=== PATIENT | female | born 1975 | race Caucasian/White ===

== ENCOUNTER 2017-05-11 14:35 | Emergency (ER) | payer BC ==
[2017-05-11 15:10] VITALS: BP 140/87
--- NOTE | 2017-05-11 15:23 | UC ---
Lower Extremity/Ankle HPI - HPI Summary HPI Summary: About a week ago got angry and kicked hard object with R foot. Has had pain and swelling on top and bottom of distal R foot, not including toes. Still painful to walk with pain coming up ankle and leg. - History of Current Complaint Stated Complaint: FOOT INJURY Time Seen by Provider: 05/11/17 15:02 Hx Obtained From: Patient Hx Last Menstrual Period: does not get ?: No Onset/Duration: Sudden Onset Severity Initially: Moderate Severity Currently: Mild Aggravating Factor(s): Standing, Ambulation Alleviating Factor(s): Rest Able to Bear Weight: Yes - Allergies/Home Medications Allergies/Adverse Reactions: Allergies Allergy/AdvReac Type Severity Reaction Status Date / Time Erythromycin AdvReac Mild Nausea Verified 10/19/16 12:08 PMH/Surg Hx/FS Hx/Imm Hx Previously Healthy: Yes - Surgical History Surgical History: Yes Surgery Procedure, Year, and Place: partial thyroidectomy - Family History Known Family History: Negative: Blood Disorder - Social History Occupation: Employed Full-time Lives: With Family Alcohol Use: Occasionally Substance Use Type: None Smoking Status (MU): Light Every Day Tobacco Smoker Amount Used/How Often: 2 packs/week Have You Smoked in the Last Year: No - Immunization History Hx Tetanus, Diphtheria Vaccination: Yes Vaccination Up to Date: Yes Review of Systems Constitutional: Negative Skin: Negative Eyes: Negative ENT: Negative Respiratory: Negative Cardiovascular: Negative Gastrointestinal: Negative Genitourinary: Negative Motor: Negative Neurovascular: Negative Musculoskeletal: Arthralgia Neurological: Negative Psychological: Negative All Other Systems Reviewed And Are Negative: Yes Physical Exam Triage Information Reviewed: Yes Appearance: Well-Appearing, No Pain Distress, Well-Nourished Vital Signs: Initial Vital Signs Temp 97.9 F 05/11/17 15:06 Pulse 107 05/11/17 15:06 Resp 20 05/11/17 15:06 BP 140/87 05/11/17 15:06 Pulse Ox 99 05/11/17 15:06 Vital Signs Reviewed: Yes Eye Exam: Normal Eyes: Positive: Conjunctiva Clear ENT Exam: Normal ENT: Positive: Normal ENT inspection, Hearing grossly normal, Pharynx normal, TMs normal Dental Exam: Normal Neck exam: Normal Neck: Positive: Supple, Nontender, No Lymphadenopathy Respiratory Exam: Normal Respiratory: Positive: Chest non-tender, Lungs clear, Normal breath sounds, No respiratory distress, No accessory muscle use Cardiovascular Exam: Normal Cardiovascular: Positive: RRR, No Murmur Musculoskeletal Exam: Other - R foot caster near distal 3rd-5th MTs Musculoskeletal: Positive: Strength Intact, ROM Intact Neurological Exam: Normal Neurological: Positive: Alert Psychological Exam: Normal Skin Exam: Normal Lower Extremity Course/Dx - Differential Dx/Diagnosis Provider Diagnoses: R foot sprain. R foot contusion. elevated blood pressure due to discomfort Discharge - Discharge Plan Condition: Stable Disposition: HOME Patient Education Materials: Foot Sprain (ED), Foot Contusion (ED) Referrals: Kirill Walters MD [Primary Care Provider] - Additional Instructions: Rest when pain is worse, and try taking ibuprofen 400-600mg 3 times per day (or naproxen 2 pills twice per day). Please see your primary care provider if you have prolonged or new symptoms.
--- NOTE | 2017-05-11 15:40 | RAD ---
Indication: Fourth and fifth metatarsal pain proximally following kicking injury one week ago. Comparison: No relevant prior exams available on the [facility] [place] PACS for comparison. Technique: AP, lateral, and oblique views RIGHT foot. Report: Normal articular alignment. No cortical disruption or suspicious trabecular irregularity to suggest fracture. No periosteal reaction or other stigmata of stress reaction. Minimal osteophytosis and joint space narrowing at the first metatarsal phalangeal joint. Unremarkable soft tissue contours. IMPRESSION: No traumatic injury of the RIGHT foot evident.
== END 2017-05-11 16:19 | disposition home or self-care (01) ==
LOC: UCEAST 14:35
DX: S93.601A Unspecified sprain of right foot, initial encounter (principal); W22.8XXA Striking against or struck by other objects, initial encounter; Y93.9 Activity, unspecified; Y92.9 Unspecified place or not applicable; Y99.9 Unspecified external cause status; S90.31XA Contusion of right foot, initial encounter; R03.0 Elevated blood-pressure reading, without diagnosis of hypertension; Z72.0 Tobacco use
CPT/HCPCS: 99211; G0463

== ENCOUNTER 2017-11-24 07:37 | Emergency (ER) | payer BC ==
[2017-11-24 07:52] VITALS: BP 140/85
[2017-11-24] MEDS ORDERED: Nitrofurantoin Macrocrystals* 50 MG CAP PO ONE (08:09)
[2017-11-24] MEDS ORDERED: Phenazopyridine TAB* 100 MG PO ONE (08:11)
--- NOTE | 2017-11-24 08:18 | UC ---
Complaint Female HPI - HPI Summary HPI Summary: 42 urine culture done at gyns lst week for UTI symptoms was not called with results no f/c mo n/v no back pain no vag d/c prone to yeast infections on antibiotics I review here culture results and she does have a UTI - History Of Current Complaint Chief Complaint: UCGU Stated Complaint: BURNING URINATION Time Seen by Provider: 11/24/17 07:59 Hx Obtained From: Patient Hx Last Menstrual Period: 2010 Onset/Duration: Gradual Onset, Lasting Days Timing: Intermittent, Lasting Seconds Severity Initially: Moderate Severity Currently: None Pain Intensity: 6 - terminal dysuria only Pain Scale Used: 0-10 Numeric Character: Burning Aggravating Factor(s): Urination Alleviating Factor(s): Nothing Associated Signs And Symptoms: Positive: Negative Related Hx: Similar Episode/Dx as: - UTI - Allergies/Home Medications Allergies/Adverse Reactions: Allergies Allergy/AdvReac Type Severity Reaction Status Date / Time Erythromycin AdvReac Mild Nausea Verified 11/24/17 07:52 PMH/Surg Hx/FS Hx/Imm Hx Previously Healthy: Yes - Surgical History Surgical History: Yes Surgery Procedure, Year, and Place: partial thyroidectomy. D&C 2010 - Family History Known Family History: Positive: Cardiac Disease, Hypertension, Diabetes Negative: Blood Disorder - Social History Alcohol Use: Occasionally Substance Use Type: None Smoking Status (MU): Light Every Day Tobacco Smoker Amount Used/How Often: 2 packs/week Have You Smoked in the Last Year: No - Immunization History Most Recent Influenza Vaccination: 2016 Hx Tetanus, Diphtheria Vaccination: Yes Vaccination Up to Date: Yes Review of Systems Constitutional: Negative Skin: Negative Eyes: Negative ENT: Negative Respiratory: Negative Cardiovascular: Negative Gastrointestinal: Negative Genitourinary: Dysuria, Frequency, Urgency Motor: Negative Neurovascular: Negative Musculoskeletal: Negative Neurological: Negative Psychological: Negative Is Patient Immunocompromised?: No All Other Systems Reviewed And Are Negative: Yes Physical Exam Triage Information Reviewed: Yes Appearance: Well-Appearing, No Pain Distress, Well-Nourished Vital Signs: Initial Vital Signs Temp 97.7 F 11/24/17 07:45 Pulse 96 11/24/17 07:45 Resp 18 11/24/17 07:45 BP 140/85 11/24/17 07:45 Pulse Ox 98 11/24/17 07:45 Vital Signs Reviewed: Yes ENT: Positive: Hearing grossly normal. Negative: Trismus, Muffled voice, Hoarse voice Neck: Positive: Supple, Nontender, No Lymphadenopathy, Other: - surgical scar Respiratory: Positive: Lungs clear, Normal breath sounds, No respiratory distress Cardiovascular: Positive: RRR, No Murmur Abdomen Description: Positive: Nontender, No Organomegaly. Negative: CVA Tenderness (R), CVA Tenderness (L) Bowel Sounds: Positive: Present Musculoskeletal: Positive: ROM Intact, No Edema Neurological: Positive: Alert Psychological Exam: Normal Skin Exam: Normal Complaint Female Dx - Differential Dx/Diagnosis Provider Diagnoses: UTI Discharge - Discharge Plan Condition: Stable Disposition: HOME Prescriptions: Fluconazole 150 MG (NF) [Diflucan 150 mg (NF)] 150 mg PO ONCE #1 tab Nitrofurantoin Monohyd Macro [Macrobid] 100 mg PO BID #14 cap Phenazopyridine TAB* [Pyridium TAB*] 100 mg PO TID #6 tab Patient Education Materials: Urinary Tract Infection in Women (ED) Referrals: Kirill Walters MD [Primary Care Provider] - 3 Days (if not better)
== END 2017-11-24 08:20 | disposition home or self-care (01) ==
LOC: UCEAST 07:37
DX: N39.0 Urinary tract infection, site not specified (principal); F17.290 Nicotine dependence, other tobacco product, uncomplicated; Z88.1 Allergy status to other antibiotic agents
CPT/HCPCS: 99212; A9270-GY; G0463

== ENCOUNTER 2018-04-27 16:34 | Emergency (ER) | payer BC ==
[2018-04-27] MEDS ORDERED: Acetaminophen TAB* 325 MG PO ONE (16:57)
[2018-04-27 17:43] LABS: ABS Basophils 0 10^3/ul (0-0.2); ABS Eosinophils 0.1 10^3/ul (0-0.6); ABS Lymphocytes 1.2 10^3/ul (1.0-4.8); ABS Monocytes 0.5 10^3/ul (0-0.8); ABS Neutrophils 4.8 10^3/ul (1.5-7.7); ABS Nucleated RBC 0 10^3/ul; Eosinophil % 2.1 % (0-6); Hematocrit 45 % (35-47); Mean Corpuscular HGB Conc 34 g/dl (31-36); Mean Corpuscular Hemoglobin 31 pg (27-31); Mean Corpuscular Volume 93 fL (80-97); Mean Platelet Volume 7.8 um3 (7.4-10.4); Nucleated Red Blood Cells % 0; Platelet Count 260 10^3/ul (150-450); Red Blood Count 4.79 10^6/ul (4.0-5.4); Red Cell Distribution Width 13 % (10.5-15); White Blood Count 6.6 10^3/ul (3.5-10.8)
--- NOTE | 2018-04-27 18:48 | RAD ---
INDICATION: Chest pain COMPARISON: Chest x-ray dated June 09, 2015 TECHNIQUE: PA and lateral views of the chest were obtained. FINDINGS: The heart and mediastinum are normal in size and contour. The lungs are grossly clear. There is no evidence of large pleural effusion. Visualized bones are normal for the patient's age. There is no radiographic evidence of free air beneath the diaphragm IMPRESSION: No radiographic evidence of acute cardiopulmonary disease.
[2018-04-27] MEDS ORDERED: LORazepam INJ* 2 MG/ML 1 ML VIAL IV ONE (19:09)
[2018-04-27 19:17] VITALS: BP 146/91
[2018-04-27] MEDS ORDERED: LORazepam TAB(*) 1 MG PO ONE (19:23)
--- NOTE | 2018-04-27 19:52 | ED ---
Jase Gold Natalie, scribed for Bayron Isaac MD on 04/27/18 at 1801 . HPI Chest Pain - HPI Summary HPI Summary: The patient is a 43 y/o F presenting to the ED c/o constant LUQ and chest wall pain starting at 14:00 today. The pt was cleaning without strenuous lifting when the pain suddenly began. The pain radiates from LUQ to her back. The pain is rated 5/10 in severity. 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 The pain is aggravated by deep breathing. Pt additionally c/o cold sweats, dizziness, and SOB. She has hx of cosotchondritis, which is a different pain than the one she is having now. Smoker. FHx of breast cancer and diabetes. - History of Current Complaint Chief Complaint: EDChestWallPain Time Seen by Provider: 04/27/18 16:55 Hx Obtained From: Patient Hx Last Menstrual Period: 2010 Onset/Duration: Started Hours Ago, Still Present Timing: Constant Initial Severity: Severe Current Severity: Moderate Pain Intensity: 5 Pain Scale Used: 0-10 Numeric Chest Pain Location: Left Anterior Chest Pain Radiates: Yes Chest Pain Radiates To:: Back Aggravating Factor(s): Movement, Deep Breaths Alleviating Factor(s): Other: - Aspirin Associated Signs and Symptoms: Positive: Dizziness, Shortness of Breath, Diaphoresis, Back Pain, Abdominal Pain - LUQ - Allergy/Home Medications Allergies/Adverse Reactions: Allergies Allergy/AdvReac Type Severity Reaction Status Date / Time erythromycin base Allergy Mild Nausea Verified 04/27/18 16:50 guaifenesin [From Robitussin] Allergy Unknown Verified 04/27/18 16:50 Reaction Details PMH/Surg Hx/FS Hx/Imm Hx Endocrine/Hematology History: Reports: Hx Thyroid Disease Denies: Hx Diabetes, Hx Sickle Cell Disease, Hx Unexplained Bleeding Cardiovascular History: Denies: Hx Aneurysm, Hx Hypertension, Hx Pacemaker/ICD, Other Cardiovascular Problems/Disorders Respiratory History: Denies: Hx Asthma, Hx Chronic Obstructive Pulmonary Disease (COPD), Other Respiratory Problems/Disorders GI History: Denies: Hx Cirrhosis, Hx Ulcer, Other GI Disorders History: Denies: Hx Dialysis, Hx Renal Disease, Other Problems/Disorders Musculoskeletal History: Denies: Other Musculoskeletal History Sensory History: Denies: Hx Eye Injury, Hx Eye Prosthesis, Hx Hearing Aid Opthamlomology History: Denies: Hx Eye Injury, Hx Eye Prosthesis Neurological History: Denies: Hx Seizures, Hx Transient Ischemic Attacks (TIA), Other Neuro Impairments/Disorders Psychiatric History: Denies: Hx Anxiety, Hx Depression, Hx Panic Disorder, Other Psychiatric Issues/Disorders - Cancer History Hx Chemotherapy: No Hx Radiation Therapy: No - Surgical History Surgery Procedure, Year, and Place: partial thyroidectomy. D&C 2010 Hx Anesthesia Reactions: No Infectious Disease History: No Infectious Disease History: Denies: Hx Clostridium Difficile, Hx Hepatitis, Hx Human Immunodeficiency Virus (HIV), Hx of Known/Suspected MRSA, Hx Shingles, Hx Tuberculosis, Hx Known/ Suspected VRE, Hx Known/Suspected VRSA, History Other Infectious Disease, Traveled Outside the [place] in Last 30 Days - Family History Known Family History: Positive: Cardiac Disease, Hypertension, Diabetes Negative: Blood Disorder - Social History Alcohol Use: Occasionally Substance Use Type: Reports: None Hx Tobacco Use: No Smoking Status (MU): Light Every Day Tobacco Smoker Amount Used/How Often: 2 packs/week Have You Smoked in the Last Year: No Review of Systems Positive: Other - cold sweats, dizziness Positive: Shortness Of Breath Positive: Abdominal Pain - LUQ Positive: Other - left back pain All Other Systems Reviewed And Are Negative: Yes Physical Exam - Summary Physical Exam Summary: Appearance: The patient is well-nourished in no acute distress and in no acute pain. Skin: The skin is warm and dry and skin color reflects adequate perfusion. HEENT: The head is normocephalic and atraumatic. The pupils are equal and reactive. The conjunctivae are clear and without drainage. Nares are patent and without drainage. Mouth reveals moist mucous membranes and the throat is without erythema and exudate. The external ears are intact. The ear canals are patent and without drainage. The tympanic membranes are intact. Neck: The neck is supple with full range of motion and non-tender. There are no carotid bruits. There is no neck vein distension. Respiratory: Chest is non-tender. Lungs are clear to auscultation and breath sounds are symmetrical and equal. Cardiovascular: Heart is regular rate and rhythm. There is no murmur or rub auscultated. There is no peripheral edema and pulses are symmetrical and equal. Abdomen: The abdomen is soft and non-tender. There are normal bowel sounds heard in all four quadrants and there is no organomegaly palpated. Musculoskeletal: There is tenderness in the left paradorsal area. Extremities are non-tender with full range of motion. There is good capillary refill. There is no peripheral edema or calf tenderness elicited. Neurological: Patient is alert and oriented to person, place and time. The patient has symmetrical motor strength in all four extremities. Cranial nerves are grossly intact. Deep tendon reflexes are symmetrical and equal in all four extremities. Psychiatric: The patient has an appropriate affect and does not exhibit any anxiety or depression. Triage Information Reviewed: Yes Vital Signs On Initial Exam: Initial Vitals Temp Pulse Resp BP Pulse Ox 97.3 F 87 17 130/98 97 04/27/18 16:46 04/27/18 16:46 04/27/18 16:46 04/27/18 16:46 04/27/18 16:46 Vital Signs Reviewed: Yes Diagnostics - Vital Signs Vital Signs Temp Pulse Resp BP Pulse Ox 04/27/18 16:47 93 18 130/98 98 04/27/18 16:46 97.3 F 87 17 130/98 97 - Laboratory Lab Results: Lab Results 04/27/18 04/27/18 04/27/18 Range/Units 17:35 17:35 17:35 WBC 6.6 (3.5-10.8) 10^3/ul RBC 4.79 (4.0-5.4) 10^6/ul Hgb 15.0 (12.0-16.0) g/dl Hct 45 (35-47) % MCV 93 (80-97) fL MCH 31 (27-31) pg MCHC 34 (31-36) g/dl RDW 13 (10.5-15) % Plt Count 260 (150-450) 10^3/ul MPV 7.8 (7.4-10.4) um3 Neut % (Auto) 71.9 (38-83) % Lymph % (Auto) 18.0 L (25-47) % [place] % (Auto) 7.4 H (0-7) % Eos % (Auto) 2.1 (0-6) % Baso % (Auto) 0.6 (0-2) % Absolute Neuts (auto) 4.8 (1.5-7.7) 10^3/ul Absolute Lymphs (auto) 1.2 (1.0-4.8) 10^3/ul Absolute Monos (auto) 0.5 (0-0.8) 10^3/ul Absolute Eos (auto) 0.1 (0-0.6) 10^3/ul Absolute Basos (auto) 0 (0-0.2) 10^3/ul Absolute Nucleated RBC 0 10^3/ul Nucleated RBC % 0 D-Dimer, Quantitative < 200 (Less Than 230) ng/mL Troponin I 0.00 (<0.04) ng/mL Beta HCG, Quant < 0.60 mIU/mL Result Diagrams: 04/27/18 17:35 Lab Statement: Any lab studies that have been ordered have been reviewed, and results considered in the medical decision making process. - Radiology CXR Xray Interpretation: No Acute Changes - No radiographic evidence of acute cardiopulmonary disease. ED physician has reviewed this report. Radiology Interpretation Completed By: Radiologist Re-Evaluation - Re-Evaluation First Eval Re-Evaluation Time: 19:12 Change: Improved Comment: I spoke with the patient about lab and imaging results. She will be discharged home. Chest Pain Course/Dx - Course Course Of Treatment: Ms. Ford presents with a sudden onset of left-sided chest pain while doing some moderate work. The pain is sharp and aggravated by movement and deep breath. She is tender in the left paradorsal area. Her workup was negative and this seems like a dorsal radicular pain to me. I recommended she use ibuprofen and rest. - Diagnoses Provider Diagnoses: Chest wall pain Discharge - Sign-Out/Discharge Documenting (check all that apply): Discharge/Admit/Transfer - Discharge Plan Condition: Stable Disposition: HOME Patient Education Materials: Chest Wall Pain (ED) Referrals: Kirill Walters MD [Primary Care Provider] - 3 Days Additional Instructions: Take Ibuprofen for pain relief as needed. Follow up with your primary care provider in 2-3 days. Return to the emergency department for any new or worsening symptoms. - Billing Disposition and Condition Condition: STABLE Disposition: HOME The documentation as recorded by the Jase delatorre Natalie accurately reflects the service I personally performed and the decisions made by me, Bayron Isaac MD.
== END 2018-04-27 19:38 | disposition home or self-care (01) ==
LOC: ED 16:34
DX: R07.89 Other chest pain (principal); F17.200 Nicotine dependence, unspecified, uncomplicated; Z80.3 Family history of malignant neoplasm of breast; Z83.3 Family history of diabetes mellitus; Z88.3 Allergy status to other anti-infective agents; Z88.8 Allergy status to other drugs, medicaments and biological substances
CPT/HCPCS: 36415; 71046; 84484; 84702; 85025; 85379; 99283; A9270-GY

== ENCOUNTER 2018-12-20 08:42 | Emergency (ER) | payer BC ==
[2018-12-20 08:56] VITALS: BP 141/89
[2018-12-20] MEDS ORDERED: Cephalexin CAP* 500 MG PO ONE (09:09)
[2018-12-20] MEDS ORDERED: Phenazopyridine TAB* 100 MG PO ONE (09:09)
--- NOTE | 2018-12-20 09:11 | UC ---
Complaint Female HPI - HPI Summary HPI Summary: Is a 43-year-old female with the onset yesterday of dysuria urgency and frequency. She denies any back or belly pain. She denies any vaginal discharge. She denies any fever or chills. - History Of Current Complaint Chief Complaint: UCGU Stated Complaint: uti Time Seen by Provider: 12/20/18 09:06 Hx Obtained From: Patient Hx Last Menstrual Period: ablasion Onset/Duration: Sudden Onset Timing: Constant Severity Initially: Mild Severity Currently: Mild Pain Intensity: 7 - when urinating Pain Scale Used: 0-10 Numeric - Allergies/Home Medications Allergies/Adverse Reactions: Allergies Allergy/AdvReac Type Severity Reaction Status Date / Time erythromycin base Allergy Mild Nausea Verified 12/20/18 08:56 guaifenesin [From Robitussin] Allergy Unknown Verified 12/20/18 08:56 Reaction Details PMH/Surg Hx/FS Hx/Imm Hx Previously Healthy: Yes - Surgical History Surgical History: Yes Surgery Procedure, Year, and Place: partial thyroidectomy. D&C 2010 - Family History Known Family History: Positive: Cardiac Disease, Hypertension, Diabetes Negative: Blood Disorder - Social History Alcohol Use: Occasionally Substance Use Type: None Smoking Status (MU): Light Every Day Tobacco Smoker Amount Used/How Often: 2 packs/week Have You Smoked in the Last Year: No - Immunization History Most Recent Influenza Vaccination: 2016 Hx Tetanus, Diphtheria Vaccination: Yes Vaccination Up to Date: Yes Review of Systems All Other Systems Reviewed And Are Negative: Yes Constitutional: Positive: Negative Skin: Positive: Negative Eyes: Positive: Negative ENT: Positive: Negative Respiratory: Positive: Negative Cardiovascular: Positive: Negative Gastrointestinal: Positive: Negative Genitourinary: Positive: Dysuria, Frequency, Urgency Motor: Positive: Negative Neurovascular: Positive: Negative Musculoskeletal: Positive: Negative Neurological: Positive: Negative Psychological: Positive: Negative Physical Exam Triage Information Reviewed: Yes Appearance: Well-Appearing, No Pain Distress, Well-Nourished Vital Signs: Initial Vital Signs Temp 98 F 12/20/18 08:52 Pulse 92 12/20/18 08:52 Resp 17 12/20/18 08:52 BP 141/89 12/20/18 08:52 Pulse Ox 100 12/20/18 08:52 ENT: Positive: Pharynx normal. Negative: Nasal congestion, Nasal drainage, Trismus, Muffled voice, Hoarse voice Neck: Positive: Supple, Nontender Respiratory: Positive: Lungs clear, Normal breath sounds, No respiratory distress, No accessory muscle use Cardiovascular: Positive: RRR, No Murmur Abdomen Description: Positive: Nontender, No Organomegaly. Negative: CVA Tenderness (R), CVA Tenderness (L) Musculoskeletal: Positive: ROM Intact, No Edema Neurological: Positive: Alert Psychological Exam: Normal Skin Exam: Normal Diagnostics - Laboratory Diagnostic Studies Completed/Ordered: UA +++ leuks Complaint Female Dx - Differential Dx/Diagnosis Provider Diagnosis: UTI (urinary tract infection) Discharge - Sign-Out/Discharge Documenting (check all that apply): Patient Departure All imaging exams completed and their final reports reviewed: No Studies - Discharge Plan Condition: Stable Disposition: HOME Prescriptions: Cephalexin CAP* [Keflex CAP*] 500 mg PO BID #10 cap Phenazopyridine TAB* [Pyridium TAB*] 100 mg PO TID #6 tab Patient Education Materials: Urinary Tract Infection in Women (ED) Referrals: Kirill Walters MD [Primary Care Provider] - If Needed Additional Instructions: recheck in 2-3 days if not better urine culture pending - Billing Disposition and Condition Condition: STABLE Disposition: Home
--- NOTE | 2018-12-21 16:13 | UC ---
- Progress Note Progress Note: 12/21/2018 Urine culture positive for E.Coli Pt Rx Keflex PO which covers it. Final sensitivity report still pending No Change Leisa Garcia PA-C Course/Dx - Diagnoses Provider Diagnoses: UTI (urinary tract infection) Discharge - Sign-Out/Discharge Documenting (check all that apply): Patient Departure - D/C home All imaging exams completed and their final reports reviewed: No Studies - Discharge Plan Condition: Stable Disposition: HOME Prescriptions: Cephalexin CAP* [Keflex CAP*] 500 mg PO BID #10 cap Phenazopyridine TAB* [Pyridium TAB*] 100 mg PO TID #6 tab Patient Education Materials: Urinary Tract Infection in Women (ED) Referrals: Kirill Walters MD [Primary Care Provider] - If Needed Additional Instructions: recheck in 2-3 days if not better urine culture pending - Billing Disposition and Condition Condition: STABLE Disposition: Home
== END 2018-12-20 09:15 | disposition home or self-care (01) ==
LOC: UCEAST 08:42
DX: N39.0 Urinary tract infection, site not specified (principal); B96.20 Unspecified Escherichia coli [E. coli] as the cause of diseases classified elsewhere; Z88.1 Allergy status to other antibiotic agents; Z88.8 Allergy status to other drugs, medicaments and biological substances; F17.200 Nicotine dependence, unspecified, uncomplicated
CPT/HCPCS: 81003; 87077; 87086; 87186; 99212; A9270-GY; G0463

== ENCOUNTER 2019-04-01 13:50 | Emergency (ER) | payer BC ==
[2019-04-01 14:08] VITALS: BP 139/83
--- NOTE | 2019-04-01 14:15 | UC ---
Cardiac HPI - HPI Summary HPI Summary: PATIENT COMPLAINS OF GRADUAL ONSET OF MIDSTERNAL CHEST PAIN THROUGHOUT THE DAY. SYMPTOMS HAVE BEEN COMING AND GOING. SHE DESCRIBES THE PAIN A DULL PRESSURE WITH OCCASIONAL SHARP PAINS. HAS SOME RADIATION DOWN HER LEFT ARM AND INTO HER BACK. SHE FEELS "A LITTLE" SHORT OF BREATH WITH "A LITTLE" NAUSEA. NO SWEATS. IS CURRENTLY MOVING AND SO HAS DONE A LOT OF HEAVY LIFTING RECENTLY LAST NIGHT. PREVIOUS CARDIAC WORK-UP 04/2018 NORMAL. - History of Current Complaint Chief Complaint: UCChestPain Stated Complaint: CHEST PAIN Time Seen by Provider: 04/01/19 13:54 Hx Obtained From: Patient Hx Last Menstrual Period: ablasion Onset/Duration: Gradual Onset, Lasting Hours, Still Present Initial Severity: Moderate Current Severity: Moderate Pain Intensity: 4 Chest Pain Location: Mid Sternal Character: Fast, Dull/Aching, Sharp/Stabbing Aggravating Factor(s): Deep Breaths Alleviating Factor(s): Nothing Associated Signs & Symptoms: Positive: Chest Pain, Anxiety, SOB, Nausea/Vomiting , Back Pain - Allergy/Home Medications Allergies/Adverse Reactions: Allergies Allergy/AdvReac Type Severity Reaction Status Date / Time erythromycin base Allergy Mild Nausea Verified 04/01/19 14:08 guaifenesin [From Robitussin] Allergy Unknown Verified 04/01/19 14:08 Reaction Details Home Medications: Home Medications Aspirin/Caffeine [[facility] Back-Body Pain Relief Cplt] 2 each PO ONCE PRN 04/01/19 [ History Confirmed 04/01/19] Ibuprofen [Advil] 2 tab PO ONCE PRN 04/01/19 [History Confirmed 04/01/19] PMH/Surg Hx/FS Hx/Imm Hx Endocrine History: Hypothyroidism - Surgical History Surgical History: Yes Surgery Procedure, Year, and Place: partial thyroidectomy. D&C 2010 - Family History Known Family History: Positive: Cardiac Disease, Hypertension, Diabetes Negative: Blood Disorder - Social History Alcohol Use: Daily Alcohol Amount: 2-3drinks/day Substance Use Type: None Smoking Status (MU): Light Every Day Tobacco Smoker Amount Used/How Often: 3-4cig/day Have You Smoked in the Last Year: No - Immunization History Most Recent Influenza Vaccination: 2016 Hx Tetanus, Diphtheria Vaccination: Yes Vaccination Up to Date: Yes Review of Systems All Other Systems Reviewed And Are Negative: Yes Constitutional: Positive: Negative Respiratory: Positive: Shortness Of Breath, Other Cardiovascular: Positive: Palpitations Gastrointestinal: Positive: Nausea Physical Exam Triage Information Reviewed: Yes Appearance: Well-Appearing, No Pain Distress, Well-Nourished Vital Signs: Initial Vital Signs Temp 98.7 F 04/01/19 13:59 Pulse 97 04/01/19 13:59 Resp 18 04/01/19 13:59 BP 139/83 04/01/19 13:59 Pulse Ox 99 04/01/19 13:59 Vital Signs Reviewed: Yes Eyes: Positive: Conjunctiva Clear ENT: Positive: Hearing grossly normal Neck: Positive: Supple Respiratory Exam: Normal Cardiovascular Exam: Normal Abdomen Description: Positive: Nontender, Soft Musculoskeletal: Positive: No Edema Neurological: Positive: Alert Psychological: Positive: Age Appropriate Behavior Skin: Negative: Rashes Diagnostics - EKG Cardiac Rate: NL - 96BPM Cardiac Rhythm: Sinus: Normal Ectopy: None ST Segment: Normal - Assessment/Plan Course Of Treatment: PATIENT TAKE OTC PAIN RELIEF MEDICATION THIS MORNING FOR A COMBINED TOTAL OF 1000 MG OF ASPIRIN AND 65 MG OF CAFFEINE. PT OFFERED TRANSPORT TO THE ED BY AMBULANCE BUT DECLINES. ADVISED THAT BY NOT TRAVELING IN A MONITORED SETTING SHE COULD BE RISKING WORSENING OF HER CONDITION THAT COULD POSE A THREAT TO HER LIFE, HEALTH AND MEDICAL SAFETY. SHE VERBALIZES UNDERSTANDING AND CONTINUES TO DECLINE AMBULANCE TRANSFER. - Clinical Impression Provider Diagnosis: Chest pain Discharge - Sign-Out/Discharge Documenting (check all that apply): Patient Departure All imaging exams completed and their final reports reviewed: No Studies - Discharge Plan Condition: Stable Disposition: TRANS HIGHER [facility] CARE [facility] Patient Education Materials: Chest Pain (ED) Referrals: Kirill Walters MD [Primary Care Provider] - If Needed Additional Instructions: GO DIRECTLY TO THE [facility] ED FROM HERE FOR FURTHER EVALUATION. YOU HAVE DECLINED TRANSFER TO THE ED BY AMBULANCE. BE ADVISED THAT BY NOT TRAVELING IN A MONITORED SETTING YOU COULD BE RISKING WORSENING OF YOUR CONDITION THAT COULD POSE A THREAT TO YOUR LIFE, HEALTH AND MEDICAL SAFETY. - Billing Disposition and Condition Condition: STABLE Disposition: Trans Higher Lvl of Care Fac
== END 2019-04-01 14:17 | disposition short-term general hospital (02) ==
LOC: UCEAST 13:50
DX: R07.89 Other chest pain (principal); R06.02 Shortness of breath; R11.2 Nausea with vomiting, unspecified; M54.9 Dorsalgia, unspecified; F41.9 Anxiety disorder, unspecified; R00.2 Palpitations; E03.9 Hypothyroidism, unspecified; Z88.1 Allergy status to other antibiotic agents; Z88.8 Allergy status to other drugs, medicaments and biological substances; F17.210 Nicotine dependence, cigarettes, uncomplicated
CPT/HCPCS: 99212; G0463

== ENCOUNTER 2019-04-01 15:08 | Emergency (ER) | payer BC ==
--- NOTE | 2019-04-01 15:40 | ED ---
HPI Chest Pain - HPI Summary HPI Summary: Pt is a 44 y/o F presenting to the ED with a chief complaint of chest pain onset this morning while she was moving mattresses. She thought it was muscular , and when a friend pushed on her back it felt a bit better, but then came back. She describes it as a dull, aching pain, located in the mid-sternum that radiates to her back. She is slightly short of breath, restless, and nauseated, and reports recent high stress d/t divorce. - History of Current Complaint Chief Complaint: EDChestPainROMI Time Seen by Provider: 04/01/19 15:30 Hx Obtained From: Patient Hx Last Menstrual Period: ablasion Onset/Duration: Started Hours Ago, Still Present Timing: Constant, Lasting Hours Initial Severity: Moderate Current Severity: Moderate Pain Intensity: 4 Pain Scale Used: 0-10 Numeric Chest Pain Location: Mid Sternal Chest Pain Radiates: Yes Chest Pain Radiates To:: Back Character: Dull/Aching Aggravating Factor(s): Nothing Alleviating Factor(s): Nothing Associated Signs and Symptoms: Positive: Chest Pain, Recent Stress, Shortness of Breath, Nausea, Other: - restless - Allergy/Home Medications Allergies/Adverse Reactions: Allergies Allergy/AdvReac Type Severity Reaction Status Date / Time erythromycin base Allergy Mild Nausea Verified 04/01/19 15:15 guaifenesin [From Robitussin] Allergy Unknown Verified 04/01/19 15:15 Reaction Details PMH/Surg Hx/FS Hx/Imm Hx Previously Healthy: Yes Endocrine/Hematology History: Reports: Hx Thyroid Disease Denies: Hx Diabetes, Hx Sickle Cell Disease, Hx Unexplained Bleeding Cardiovascular History: Denies: Hx Aneurysm, Hx Hypertension, Hx Pacemaker/ICD, Other Cardiovascular Problems/Disorders Respiratory History: Denies: Hx Asthma, Hx Chronic Obstructive Pulmonary Disease (COPD), Other Respiratory Problems/Disorders GI History: Denies: Hx Cirrhosis, Hx Ulcer, Other GI Disorders History: Denies: Hx Dialysis, Hx Renal Disease, Other Problems/Disorders Musculoskeletal History: Denies: Other Musculoskeletal History Sensory History: Denies: Hx Eye Injury, Hx Eye Prosthesis, Hx Hearing Aid Opthamlomology History: Denies: Hx Eye Injury, Hx Eye Prosthesis Neurological History: Denies: Hx Seizures, Hx Transient Ischemic Attacks (TIA), Other Neuro Impairments/Disorders Psychiatric History: Denies: Hx Anxiety, Hx Depression, Hx Panic Disorder, Other Psychiatric Issues/Disorders - Cancer History Hx Chemotherapy: No Hx Radiation Therapy: No - Surgical History Surgery Procedure, Year, and Place: partial thyroidectomy. D&C 2010 Hx Anesthesia Reactions: No Infectious Disease History: No Infectious Disease History: Denies: Hx Clostridium Difficile, Hx Hepatitis, Hx Human Immunodeficiency Virus (HIV), Hx of Known/Suspected MRSA, Hx Shingles, Hx Tuberculosis, Hx Known/ Suspected VRE, Hx Known/Suspected VRSA, History Other Infectious Disease, Traveled Outside the [place] in Last 30 Days - Family History Known Family History: Positive: Cardiac Disease, Hypertension, Diabetes Negative: Blood Disorder - Social History Alcohol Use: Daily Alcohol Amount: 2-3drinks/day Hx Substance Use: No Substance Use Type: Reports: None Hx Tobacco Use: No Smoking Status (MU): Light Every Day Tobacco Smoker Amount Used/How Often: 3-4cig/day Have You Smoked in the Last Year: No Review of Systems Positive: Other - restless Positive: Chest Pain Positive: Shortness Of Breath Positive: Nausea All Other Systems Reviewed And Are Negative: Yes Physical Exam - Summary Physical Exam Summary: VITAL SIGNS: Reviewed. GENERAL: Patient is a well-developed and nourished female who is lying comfortable in the stretcher. Patient is not in any acute respiratory distress. HEAD AND FACE: No signs of trauma. No ecchymosis, hematomas or skull depressions. No sinus tenderness. EYES: PERRLA, EOMI x 2, No injected conjunctiva, no nystagmus. EARS: Hearing grossly intact. Ear canals and tympanic membranes are within normal limits. MOUTH: Oropharynx within normal limits. NECK: Supple, trachea is midline, no adenopathy, no JVD, no carotid bruit, no c- spine tenderness, neck with full ROM. CHEST: Symmetric, reproducible chest pain LUNGS: Clear to auscultation bilaterally. No wheezing or crackles. CVS: Regular rate and rhythm, S1 and S2 present, no murmurs or gallops appreciated. ABDOMEN: Soft, non-tender. No signs of distention. No rebound no guarding, and no masses palpated. Bowel sounds are normal. EXTREMITIES: FROM in all major joints, no edema, no cyanosis or clubbing. NEURO: Alert and oriented x 3. No acute neurological deficits. Speech is normal and follows commands. SKIN: Dry and warm Triage Information Reviewed: Yes Vital Signs On Initial Exam: Initial Vitals Temp Pulse Resp BP Pulse Ox 97.4 F 97 18 132/92 99 04/01/19 15:12 04/01/19 15:12 04/01/19 15:12 04/01/19 15:12 04/01/19 15:12 Vital Signs Reviewed: Yes Diagnostics - Vital Signs Vital Signs Temp Pulse Resp BP Pulse Ox 04/01/19 15:12 97.4 F 97 18 132/92 99 - Laboratory Result Diagrams: 04/01/19 16:01 04/01/19 16:01 Lab Statement: Any lab studies that have been ordered have been reviewed, and results considered in the medical decision making process. - Radiology CXR Radiology Interpretation Completed By: Radiologist Summary of Radiographic Findings: No active cardiopulmonary disease is noted. ED physician has reviewed this report. - EKG 1521 Cardiac Rate: NL - 86bpm EKG Rhythm: Sinus Rhythm ST Segment: Normal Ectopy: None EKG Comparison: No Significant Change Summary of EKG Findings: EKG at 1521 shows NSR at 86bpm with no STEMI and no acute changes from 12/04/13. Chest Pain Course/Dx - Course Assessment/Plan: This patient is a 44-year-old female who presents to the emergency room with a chief complaint of having retrosternal chest pain. The patient reports that the pain is sharp and increases with deep inspiration and movement. She reports that she was moving some furniture this morning when she developed the pain. She also reports slight shortness of breath. Denies any cough, denies any palpitations fever or chills. Patient has no other complaints. Medical history significant for hypothyroidism. Blood test results without any significant abnormality, troponin 0.00. The heart score is equal to 1 therefore is a little suspicion for acute coronary syndrome. Also the d-dimer is less than 200 and the patient is not hypoxic or tachycardic therefore have no suspicion for a PE. I believe that her symptoms are secondary to muscular skeletal pain. Patient reports that all symptoms have resolved. Because the patient has no significant comorbidities and no family history of cardiovascular disease at his age the patient will be discharged home with follow up with PCP. I discussed all the findings and test results with the patient. Patient was instructed to return to the emergency room immediately if any of the symptoms return or worsens. Patient understands and agrees. Plan of care was discussed with the patient and patient understands and agrees. All questions were answered at patient satisfaction. There were no further complaints or concerns. PE before discharge: CVS: S1 and S2 present. No murmurs appreciated. Abdominal exam before discharge: Soft, non-tender. No signs of distention. No rebound no guarding, and no masses palpated. Bowel sounds are normal. Patient is alert and oriented x 3. Patient is hemodynamically stable. - Chest Pain Differential Diagnosis/HQI/PQRI: Acute KS, ACS, Angina, Aortic Aneurysm, CHF, Chest Wall, GI Disease, Lower Respiratory Infection - Diagnoses Provider Diagnoses: Chest pain Discharge - Sign-Out/Discharge Documenting (check all that apply): Patient Departure Patient Received Moderate/Deep Sedation with Procedure: No - Discharge Plan Condition: Stable Disposition: HOME Referrals: Kirill Walters MD [Primary Care Provider] - Additional Instructions: Please follow up with your primary care provider in 2-3 days. Return to the ED with any new or worsening symptoms. - Billing Disposition and Condition Condition: STABLE Disposition: Home - Attestation Statements Document Initiated by Scribe: Yes Documenting Scribe: Laya Brooks Provider For Whom Andrea is Documenting (Include Credential): Gordon Main MD. Scribe Attestation: Laya Gold scribed for Gordon Main MD. on 04/01/19 at 2057. Scribe Documentation Reviewed: Yes Provider Attestation: The documentation as recorded by the Laya delatorre accurately reflects the service I personally performed and the decisions made by Gordon palma MD. Status of Scribe Document: Viewed
[2019-04-01 16:11] LABS: ABS Eosinophils 0.2 10^3/ul (0-0.6); ABS Lymphocytes 1.6 10^3/ul (1.0-4.8); ABS Monocytes 0.6 10^3/ul (0-0.8); ABS Neutrophils 3.4 10^3/ul (1.5-7.7); Eosinophil % 3.4 %; Hematocrit 41 % (35-47); Hemoglobin 13.8 g/dL (12.0-16.0); Lymphocyte % 27.5 %; Mean Corpuscular HGB Conc 34 g/dL (31-36); Mean Corpuscular Hemoglobin 31 pg (27-31); Mean Corpuscular Volume 90 fL (80-97); Mean Platelet Volume 7.7 fL (7.4-10.4); Platelet Count 288 10^3/uL (150-450); Red Blood Count 4.53 10^6 /uL (3.70-4.87); Red Cell Distribution Width 14 % (10.5-15); White Blood Count 5.9 10^3/uL (3.5-10.8)
[2019-04-01 16:31] LABS: Troponin I 0.01 ng/mL (<0.04)
[2019-04-01 16:32] LABS: CKMB ng/mL 1.1 ng/mL (0.6-6.3)
[2019-04-01 16:35] LABS: HCG Pregnancy < 0.60 mIU/mL
[2019-04-01 16:36] LABS: ALT 28 U/L (7-52); AST 18 U/L (13-39); Albumin 4.5 g/dL (3.2-5.2); Albumin/Globulin Ratio 1.6 (1-3); Alkaline Phosphatase 69 U/L (34-104); Anion Gap 7 mmol/L (2-11); BUN/Creatinine Ratio 16.2 (8-20); Blood Urea Nitrogen 12 mg/dL (6-24); CO2 Carbon Dioxide 24 mmol/L (22-32); Calcium 9.5 mg/dL (8.6-10.3); Chloride 106 mmol/L (101-111); Creatine Kinase 101 U/L (10-223); EGFR African American 103.2 (>60); EGFR Non-African American 85.3 (>60); Globulin 2.8 g/dL (2-4); Glucose 98 mg/dL (70-100); Potassium 3.7 mmol/L (3.5-5.0); Sodium 137 mmol/L (135-145); Total Protein 7.3 g/dL (6.4-8.9)
[2019-04-01 16:49] LABS: TSH (Thyroid Stimulating Horm) 2.56 mcIU/mL (0.34-5.60)
[2019-04-01] MEDS ORDERED: Ketorolac INJ* 30 MG/ML 1 ML VIAL IM ONE (17:28)
[2019-04-01 17:43] VITALS: BP 119/79
== END 2019-04-01 17:47 | disposition home or self-care (01) ==
LOC: ED 15:08
DX: R07.9 Chest pain, unspecified (principal); E07.9 Disorder of thyroid, unspecified; R06.02 Shortness of breath; F17.210 Nicotine dependence, cigarettes, uncomplicated; Z88.3 Allergy status to other anti-infective agents; Z88.8 Allergy status to other drugs, medicaments and biological substances
CPT/HCPCS: 36415; 71046; 80053; 82550; 82553; 83605; 83880; 84443; 84484; 84702; 85025; 85379; 93005; 96372; 99282; J1885